=== PATIENT | male | born 1955 | race Two or more races ===

== ENCOUNTER 2018-02-12 16:47 | Emergency (ER) | payer MEDICARE, MEDICAID ==
[~2018-02-12] VITALS: Ht 172.7 cm; Wt 81.6 kg
[2018-02-12 16:44] VITALS: BP 135/91
[2018-02-12 17:29] LABS: EOSINOPHILS % (AUTO) 1.5 % (0.0-3.0); HEMATOCRIT 54.7 % (42.0-52.0); LYMPHOCYTES % (AUTO) 28.1 % (20.0-45.0); MEAN CORPUSCULAR VOLUME 94 FL (80-99); NEUTROPHILS % (AUTO) 62.5 % (45.0-75.0); PLATELET COUNT 207 K/UL (150-450); RED BLOOD COUNT 5.85 M/UL (4.70-6.10); RED CELL DISTRIBUTION WIDTH 12.5 % (11.6-14.8); WHITE BLOOD COUNT 7.7 K/UL (4.8-10.8)
[2018-02-12 17:34] LABS: ANION GAP 9 mmol/L (5-15); BLOOD UREA NITROGEN 24 mg/dL (7-18); CARBON DIOXIDE 22 MMOL/L (21-32); CHLORIDE 105 MMOL/L (98-107); CREATININE 1.2 MG/DL (0.55-1.30); POTASSIUM 5.7 MMOL/L (3.5-5.1); SODIUM 136 MMOL/L (136-145)
[2018-02-12 17:36] LABS: AMMONIA 30 umol/L (11-32)
[2018-02-12 17:38] LABS: ALANINE AMINOTRANSFERASE 39 U/L (12-78); ALBUMIN 3.2 G/DL (3.4-5.0); ALBUMIN/GLOBULIN RATIO 0.6 (1.0-2.7); ALKALINE PHOSPHATASE 65 U/L (46-116); ASPARTATE AMINO TRANSFERASE 46 U/L (15-37); BILIRUBIN,TOTAL 0.6 MG/DL (0.2-1.0)
[2018-02-12 17:40] LABS: HEMOGLOBIN 18.1 G/DL (14.2-18.0)
--- NOTE | 2018-02-12 17:59 | Emergency Room Report ---
History of Present Illness General Chief Complaint: Abnormal Labs Source: EMS Present Illness HPI Patient was sent to the emergency room for elevated ammonia level Patient himself has underlying dementia as well History of present illness is limited There was no reports of vomiting or diarrhea There was no reports of chest pain or shortness of breath patient has history of chronic liver disease And after abnormal blood work was sent to the emergency room Allergies: Coded Allergies: No Known Allergies (Unverified , 02/12/18) Patient History Limited by: medical condition Past Medical History: see triage record Pertinent Family History: unable to obtain Reviewed Nursing Documentation: PMH: Agreed; PSxH: Agreed Nursing Documentation-PM Past Medical History: No History, Except For Hx Hypertension: Yes - Anemia Hx COPD: Yes Review of Systems All Other Systems: limited - Other than the ones mentioned in the history of present illness all others are reviewed however they do stay limited due to the patient's mental status Physical Exam Vital Signs Date Time Temp Pulse Resp B/P (MAP) Pulse Ox O2 Delivery O2 Flow Rate FiO2 02/12/18 16:28 98.4 76 18 135/91 94 Room Air 98.4 Sp02 EP Interpretation: reviewed, normal General Appearance: no apparent distress Head: normocephalic, atraumatic Eyes: bilateral eye PERRL, bilateral eye EOMI ENT: normal pharynx Neck: supple Respiratory: lungs clear, no respiratory distress, no retraction Cardiovascular #1: regular rate, rhythm Gastrointestinal: non tender, soft Musculoskeletal: other - Moving both upper extremity without focal deficit Neurologic: responsive - Makes eye contact, intermittently blurts out different responses, is awake Skin: normal color, no rash Lymphatic: no adenopathy Medical Decision Making Diagnostic Impression: Primary Impression: Hepatic encephalopathy ER Course Multiple differentials considered Patient is complex requiring blood work and repeat evaluation at this time the patient's ammonia level is back at appropriate levels Significantly decreased from the level that was obtained at the nursing facility patient is also awake and does not appear to be in any coma Potassium level is mildly elevated This was addressed in the emergency room And patient will have transfer back to the nursing facility for continued close outpatient follow-up Labs Test 02/12/18 17:06 White Blood Count 7.7 K/UL (4.8-10.8) Red Blood Count 5.85 M/UL (4.70-6.10) Hemoglobin 18.1 G/DL (14.2-18.0) Hematocrit 54.7 % (42.0-52.0) Mean Corpuscular Volume 94 FL (80-99) Mean Corpuscular Hemoglobin 31.0 PG (27.0-31.0) Mean Corpuscular Hemoglobin Concent 33.2 G/DL (32.0-36.0) Red Cell Distribution Width 12.5 % (11.6-14.8) Platelet Count 207 K/UL (150-450) Mean Platelet Volume 6.9 FL (6.5-10.1) Neutrophils (%) (Auto) 62.5 % (45.0-75.0) Lymphocytes (%) (Auto) 28.1 % (20.0-45.0) Monocytes (%) (Auto) 6.0 % (1.0-10.0) Eosinophils (%) (Auto) 1.5 % (0.0-3.0) Basophils (%) (Auto) 2.0 % (0.0-2.0) Sodium Level 136 MMOL/L (136-145) Potassium Level 5.7 MMOL/L (3.5-5.1) Chloride Level 105 MMOL/L (98-107) Carbon Dioxide Level 22 MMOL/L (21-32) Anion Gap 9 mmol/L (5-15) Blood Urea Nitrogen 24 mg/dL (7-18) Creatinine 1.2 MG/DL (0.55-1.30) Estimat Glomerular Filtration Rate > 60 mL/min (>60) Glucose Level 145 MG/DL (74-106) Calcium Level 10.0 MG/DL (8.5-10.1) Total Bilirubin 0.6 MG/DL (0.2-1.0) Aspartate Amino Transf (AST/SGOT) 46 U/L (15-37) Alanine Aminotransferase (ALT/SGPT) 39 U/L (12-78) Alkaline Phosphatase 65 U/L (46-116) Ammonia 30 umol/L (11-32) Total Protein 8.2 G/DL (6.4-8.2) Albumin 3.2 G/DL (3.4-5.0) Globulin 5.0 g/dL Albumin/Globulin Ratio 0.6 (1.0-2.7) Lipase 392 U/L (73-393) Rhythm Strip Diag. Results EP Interpretation: yes Rate: 67 Rhythm: NSR, no PVC's, no ectopy Last Vital Signs Date Time Temp Pulse Resp B/P (MAP) Pulse Ox O2 Delivery O2 Flow Rate FiO2 02/12/18 16:44 98.4 76 18 135/91 94 Room Air 98.4 Status: improved Disposition: XFER SNF Condition: Improved Referrals: NON PHYSICIAN (PCP) Additional Instructions: Patient is provided with the discharge instructions for nursing facility follow up. Please note that this report is being documented using RTF Logic technology. This can lead to erroneous entry secondary to incorrect interpretation by the dictating instrument. Rhea Sousa DO Feb 12, 2018 17:59
[2018-02-12] MEDS ORDERED: Sodium Polystyrene Sulfonate 15gm Powder ORAL ONE (18:00)
[2018-02-12 18:17] VITALS: BP 132/76
[2018-02-12 18:45] VITALS: BP 132/76
== END 2018-02-12 18:45 ==
LOC: EDBD 16:47 → EMR 17:20
DX: K72.90 Hepatic failure, unspecified without coma (principal); J44.9 Chronic obstructive pulmonary disease, unspecified
CPT/HCPCS: 36415; 80053; 82140; 83690; 85025; 99283